=== PATIENT | male | born 1990 | race Caucasian/White ===

== ENCOUNTER 2016-11-03 20:49 | Inpatient (IN) | payer OTHER ==
--- NOTE | ~2016-11-03 | HP ---
Unit #: [id number] #: [id number] Patient: ANISH PHAM [id number] [place] [address] [id number] MR#: [id number] NAME: ANISH PHAM ROOM: P130 Age: 26 Sex: M Admission Date: 11/04/2016 : 1990 Attending Physician: Arnold Magallon M.D. Admitting Physician: Arnold Magallon M.D. Primary Care Physician: Kusum Lomeli M.D. HISTORY AND PHYSICAL NOTE Ken is a 26 year old who was admitted and discharged within the first 24 hours. He was not seen for an H & P. Dictated by... Uma Bradford P.A.-C. for Edgardo Hill TD: 11/04/2016 21:16 JOB #: [id number] HISTORY AND PHYSICAL Page 1 of 1 X Uma Bradford HISTORY AND PHYSICAL
== END 2016-11-04 14:42 | disposition home or self-care (01) | DRG 882 ==
LOC: EDBD 11-04 02:05 → P1S 11-04 02:05
DX: F43.20 Adjustment disorder, unspecified (principal); F32.9 Major depressive disorder, single episode, unspecified